=== PATIENT | female | born 2005 | race Two or more races ===

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

== ENCOUNTER 2024-12-20 16:27 | Emergency (ER) | payer SELFPAY ==
[~2024-12-20] VITALS: Ht 152.4 cm; Wt 70.0 kg
[2024-12-20 16:32] VITALS: BP 112/66; PULSE 66; RESP 18; TEMP 98.2; O2SAT 99
== END 2024-12-20 17:17 | disposition left against medical advice (07) ==
LOC: ER 16:33
DX: Z79.899 Other long term (current) drug therapy (principal)